=== PATIENT | male | born 1980 | race Caucasian/White ===

== ENCOUNTER 2024-10-23 07:18 | Day surgery (SDC) | payer BC, SELFPAY ==
[2024-10-23] VITALS (14 sets, daily range): BP systolic 126–153; BP diastolic 78–99; PULSE 84–108; RESP 14–20; TEMP 35.8–36.9; O2SAT 92–96
[2024-10-23] MEDS: LACTATED RINGERS 1000 ML 1,000 ML 100 ML IV (07:40)
[2024-10-23] MEDS: SODIUM CHLORIDE 0.9 % (FLUSH) 10 ML SYRINGE IVF (07:40)
--- NOTE | 2024-10-23 08:26 | W.PM.H&PU ---
History & Physical Update History & Physical Update H&P Reviewed and patient assessed: No changes noted
[2024-10-23] MEDS: CEFAZOLIN 2 GM INJ IVP (08:35)
[2024-10-23] MEDS: BUPIVACAINE 0.25% 30 ML INJECTION (09:37)
[2024-10-23] MEDS: LIDOCAINE 1% MDV 20 ML INJECTION (09:49)
[2024-10-23] MEDS: BUPIVACAINE 0.5% 30 ML INJECTION (09:49)
--- NOTE | 2024-10-23 10:07 | PM.GSPRC ---
Operative Note Date of procedure: 10/23/24 Pre-op diagnosis: 1. Umbilical hernia 2. Desire for sterilization Post-op diagnosis: Same Type of Procedure: 1. Open repair umbilical and supraumbilical hernia with mesh, total size of defect measuring 1.5 by 3 cm 2. Vasectomy Indications: The patient is a 43-year-old male who has had an umbilical hernia for the past year. Became more uncomfortable recently and he had episode of incarceration and severe pain. His symptoms fortunately resolved and he was able to come in and be evaluated in clinic. Given his symptoms, repair was recommended he agreed to proceed. The patient also desired permanent sterilization. After discussion of risks, he also agreed to proceed with this at the time of hernia repair. Procedure Description: After discussing the risks and benefits of the procedure, the patient signed informed consent.? The operative site was marked and the patient was brought to the operating room and placed on the operating table in supine position.? Care was taken to pad the patient's pressure points.?? The patient was then intubated by anesthesia.?? The operative site was then prepped and draped in the usual sterile fashion.? A time-out was then performed. Local anesthetic was injected into the fascia, skin and subcutaneous tissues. A curvilinear incision was made just above the umbilicus. Dissection was carried down into the subcutaneous tissue using cautery. The hernia sac was encountered and care was taken to not enter it. Dissection was taken down to the fascia, and the umbilical stalk was carefully dissected off of the fascia. There appeared to be a small hernia below the umbilicus as well containing preperitoneal fat. Once the hernia sac was dissected out circumferentially, it was reduced. The fascial edges were then cleared circumferentially. The 2 hernias abutted each other with a 5 mm width of fascia in between. I began creating a preperitoneal pocket behind the superior hernia. Once I reached the fascial bridge, it was easiest to divide this to connect the 2 hernias. The hernias measured 1.5 x 3 cm. I then created a preperitoneal pocket using a combination of blunt dissection and cautery below the umbilical hernia. Once this was created, I obtained a piece of [address] mesh and placed this in the pocket. 0 PDS suture was used to anchor the mesh circumferentially. These were then tied in place, ensuring the mesh laid flat. The tails of the mesh were then trimmed. I then closed the fascial defect primarily with a running 0 PDS suture. Once this was done, local anesthetic was injected into the fascia for postoperative pain control. I then reapproximated the umbilicus to the fascia using 3-0 Vicryl. The skin was then closed with running absorbable suture. A sterile dressing was then applied. Attention was then turned to the vasectomy. The scrotum and penis were prepped with copious Betadine and draped. I began on the right side. The spermatic cord was grasped and the vas deferens isolated. 1% lidocaine was injected into the scrotal skin and around the vas deferens. Once the skin was anesthetized, a stab incision was made overlying the vas. Blunt dissection was taken down to the vas. The vas deferens was then grasped and pulled out the incision. Careful dissection was then done to isolate a 3 cm segment of vas deferens from the surrounding blood vessels and tissue. Once this was done the vas was clipped proximally and distally and sharply transected with scissors. This was passed off for pathology. The ends of the vas deferens were cauterized. A small bleeding vessel was clipped for hemostasis. A small bleeding vessel on the skin edge was cauterized. The same procedure was then performed on the left, again isolating a 3 cm segment of vas deferens and sending for pathology. Gauze dressings were then applied. ? The patient was then woken and transported to the recovery area in stable condition. ? The patient tolerated the procedure well. Findings: 1. Umbilical and supraumbilical hernias abutting each other, total fascial defect measuring 1.5 x 3 cm, repaired with mesh Anesthesia: [facility] Surgeon: Eda Waldron MD Estimated blood loss (mL): 10 Specimen: Other Additional Specimen Information: 1. Right vas deferens 2. Left vas deferens Condition: stable Disposition: PACU
--- NOTE | 2024-10-23 10:17 | W.ANESCHARGE ---
Anesthesia Charges Start Date/Time Anesthesia Start Date: 10/23/24 Anesthesia Start Time: 08:26 Stop Date/Time Anesthesia Stop Date: 10/23/24 Anesthesia Stop Time: 10:21 Coding CPT Codes CPT Codes: ANESTH REPAIR OF HERNIA - 53962 ([id number]) QX - VENEER DRIER RADHA W/ MD MED DIRECTION, QK - POWER BUILDER DEVELOPER 2-4 CNCRNT ANES PROC, P3 - PATIENT W/SEVERE SYS DISEASE
--- NOTE | 2024-10-23 10:23 | W.ANESCHARGE ---
Anesthesia Charges Start Date/Time Anesthesia Start Date: 10/23/24 Anesthesia Start Time: 08:26 Stop Date/Time Anesthesia Stop Date: 10/23/24 Anesthesia Stop Time: 10:21 Coding CPT Codes CPT Codes: ANESTH REPAIR OF HERNIA - 82665 ([id number]) P3 - PATIENT W/SEVERE SYS DISEASE, QK - COLLAR SEWER 2-4 CNCRNT ANES PROC, QX - COMBINATION TECHNICIAN SVC W/ MD MED DIRECTION
[2024-10-23] MEDS: KETOROLAC 15 MG/ML inj IVP (10:51)
[2024-10-23] MEDS: ONDANSETRON 2 MG/ML inj 4 MG IVP (11:25)
[2024-10-23] MEDS: HYDROCODONE-ACETAMIN 5-325 MG 1 TAB PO (11:45)
[2024-10-23] MEDS: METOCLOPRAMIDE HCL 5 MG/ML INJ 10 MG IVP (12:06)
== END 2024-10-23 12:25 | disposition home or self-care (01) ==
LOC: OR 07:19
PROVIDERS: PCP Internal Medicine; Visit Provider Surgery
PROC: (CPT 55250; principal; 2024-10-23 08:30)
PROC: (CPT 55250; 2024-10-23 08:30)
DX: K42.9 Umbilical hernia without obstruction or gangrene (principal); K43.9 Ventral hernia without obstruction or gangrene; Z30.2 Encounter for sterilization
CPT/HCPCS: 55250; 49593; 00750; 88302; J2003; A9270; C1781; J0330; J0665; J0690; J1100; J1171; J1885; J2250; J2405; J2704; J2765; J3010; J3490; J7120